=== PATIENT | male | born 1985 | race Caucasian/White ===

== ENCOUNTER 2020-03-23 13:42 | Emergency (ER) | payer MEDICAID ==
[2020-03-23] MEDS ORDERED: Lactated Ringers 1,000 ML IV ONE (15:13)
--- NOTE | 2020-03-23 15:26 | EDM.PDOC ---
ED HPI GENERAL MEDICAL PROBLEM - General Chief Complaint: Genitourinary Problem Stated Complaint: BLOOD IN URINE Time Seen by Provider: 03/23/20 15:10 Source of Information: Reports: Patient History Limitations: Reports: Other (limited old records) - History of Present Illness INITIAL COMMENTS - FREE TEXT/NARRATIVE: 34 yo male on warfarin and no recent INR presents with hematuria for the past few weeks. Today he had mild bilateral pelvic tenderness so came to the ER. No fever. No bleeding or bruising in other areas. Pain is mild. Had called his primary(in [place]) and he told him that it was not emergent to be seen unless he got pain, since he has pain today he came here. Is on warfarin for clots that developed after an umbilical hernia repair. He is currently living with his parents here since he and his are out of work and lost their residence. Onset: Gradual Duration: Week(s): Location: Reports: Pelvis (urine, gross hematuria) Quality: Reports: Dull Severity: Mild Improves with: Reports: None Worsens with: Reports: Other (uncertain) Context: Reports: Other (see HPI) Associated Symptoms: Reports: No Other Symptoms Treatments MINE SHIFTER: Reports: Other (see below) (none) Abdomen Pain Score (Numeric/FACES): 5 - Related Data Allergies Allergy/AdvReac Type Severity Reaction Status Date / Time No Known Allergies Allergy Verified 03/23/20 14:51 Home Meds: Home Meds Aspirin [Halfprin] 81 mg PO DAILY 03/23/20 [History] Celecoxib 200 mg PO DAILY 03/23/20 [History] Gabapentin [Gralise] 600 mg PO DAILY 03/23/20 [History] Hydrocodone/Acetaminophen [Lorcet 5-325 mg Tablet] 1 each PO BEDTIME 03/23/20 [ History] Sertraline [Zoloft] 100 mg PO DAILY 03/23/20 [History] Topiramate 50 mg PO DAILY 03/23/20 [History] Warfarin [Coumadin] 5 mg PO ASDIRECTED 03/23/20 [History] busPIRone [Buspar] 15 mg PO DAILY 03/23/20 [History] methocarbamoL [Methocarbamol] 500 mg PO DAILY 03/23/20 [History] Past Medical History Cardiovascular History: Reports: Other (See Below) Other Cardiovascular History: DVT Respiratory History: Reports: PE Neurological History: Reports: Brain Injury - Past Surgical History GI Surgical History: Reports: Appendectomy, Hernia, Abdominal, Hernia Repair/ Other Musculoskeletal Surgical History: Reports: Other (See Below) Other Musculoskeletal Surgeries/Procedures:: knee reconstruction and scope also shoulder surgery Social & Family History - Tobacco Use Smoking Status *Q: Never Smoker - Caffeine Use Caffeine Use: Reports: Tea - Recreational Drug Use Recreational Drug Use: No ED ROS GENERAL - Review of Systems Review Of Systems: See Below Constitutional: Reports: No Symptoms HEENT: Reports: No Symptoms Respiratory: Reports: No Symptoms Cardiovascular: Reports: No Symptoms Endocrine: Reports: No Symptoms GI/Abdominal: Reports: No Symptoms : Reports: Hematuria, Other (mild, bilateral pelvis pain new onset today. ). Denies: Dysuria Musculoskeletal: Reports: No Symptoms Skin: Reports: No Symptoms Neurological: Reports: No Symptoms Psychiatric: Reports: No Symptoms Hematologic/Lymphatic: Denies: Anemia, Easy Bleeding, Easy Bruising ED EXAM, RENAL/ - Physical Exam Exam: See Below Exam Limited By: No Limitations General Appearance: Alert, WD/WN, No Apparent Distress, Obese Eye Exam: Bilateral Eye: Normal Inspection Ears: Normal External Exam, Normal Canal, Hearing Grossly Normal, Normal TMs Nose: Normal Inspection, No Blood Throat/Mouth: Normal Inspection, Normal Lips, Normal Oropharynx, Normal Voice, No Airway Compromise Head: Atraumatic, Normocephalic Neck: Normal Inspection Respiratory/Chest: No Respiratory Distress, Lungs Clear, Normal Breath Sounds, No Accessory Muscle Use Cardiovascular: Regular Rate, Rhythm, No Edema. No: Tachycardia GI/Abdominal: No: Distended Back Exam: Normal Inspection. No: CVA Tenderness (R), CVA Tenderness (L) Extremities: Normal Inspection, Normal Range of Motion, Non-Tender, No Pedal Edema Neurological: Alert, Oriented, CN II-XII Intact, Normal Cognition, No Motor/ Sensory Deficits Psychiatric: Normal Affect, Normal Mood Skin Exam: Warm, Dry, Intact, Normal Color, No Rash Course - Vital Signs Text/Narrative:: Bladder scan 35 ml post void Last Recorded V/S: Last Vital Signs Temp 37.1 C 03/23/20 14:53 Pulse 87 03/23/20 15:52 Resp 16 03/23/20 15:52 BP 139/87 03/23/20 15:52 Pulse Ox 96 03/23/20 15:52 - Orders/Labs/Meds Orders: Active Orders 24 hr Category Date Time Status Bladder Scan [RC] ASDIRECTED Care 03/23/20 15:25 Active Renal Comp [US] Stat Exams 03/23/20 15:29 Ordered Labs: Laboratory Tests 03/23/20 03/23/20 Range/Units 15:03 15:44 PT 50.9 H (9.5-12.0) sec INR 5.17 H* (0.80-1.20) Urine Color Yellow (YELLOW) Urine Appearance Cloudy A (CLEAR) Urine pH 5.5 (5.0-8.0) Ur Specific [place] >= 1.030 (1.008-1.030) Urine Protein 30 H (NEGATIVE) mg/dL Urine Glucose (UA) Negative (NEGATIVE) mg/dL Urine Ketones Negative (NEGATIVE) mg/dL Urine Occult Blood Large H (NEGATIVE) Urine Nitrite Negative (NEGATIVE) Urine Bilirubin Small H (NEGATIVE) Urine Urobilinogen 0.2 (0.2-1.0) EU/dL Ur Leukocyte Esterase Negative (NEGATIVE) Urine RBC 50-75 H (0-5) Urine WBC 0-5 (0-5) Ur Epithelial Cells Few Amorphous Sediment Many Urine Bacteria Few Urine Mucus Not seen Urine Other Not Reportable Meds: Medications Discontinued Medications Generic Name Dose Route Start Last Admin Trade Name Freq PRN Reason Stop Dose Admin Lactated Ringer's 1,000 mls @ 1,000 mls/hr 03/23/20 15:13 03/23/20 15:48 Ringers, Lactated IV 03/23/20 16:12 1,000 mls/hr BOLUS ONE Administration - Radiology Interpretation Free Text/Narrative:: Bilat. Renal US-negative for any renal pathology Departure - Departure Time of Disposition: 16:18 Disposition: Home, Self-Care 01 Clinical Impression: Supratherapeutic INR, Gross hematuria - Discharge Information *PRESCRIPTION DRUG MONITORING PROGRAM REVIEWED*: No *COPY OF PRESCRIPTION DRUG MONITORING REPORT IN PATIENT ANI: No Instructions: Hematuria, Adult Referrals: PCP,None [Primary Care Provider] - Forms: ED Department Discharge Additional Instructions: Hold your warfarin today and tomorrow. Share today's INR of 5.17 with your doctor regarding changes in your warfarin dosing. F/U with your doctor for further work up, you may need urology referral for cystoscopy. Sepsis Event Note - Evaluation Sepsis Screening Result: No Definite Risk - Focused Exam Vital Signs: Vital Signs Temp Pulse Resp BP Pulse Ox 03/23/20 15:52 87 16 139/87 96 03/23/20 14:53 37.1 C 114 H 17 131/91 H 96 03/23/20 14:36 37.1 C 114 H 17 131/91 H 96 Date Exam was Performed: 03/23/20 Time Exam was Performed: 16:18 - My Orders Last 24 Hours: My Active Orders 03/23/20 15:25 Bladder Scan [RC] ASDIRECTED 03/23/20 15:29 Renal Comp [US] Stat - Assessment/Plan Last 24 Hours: My Active Orders 03/23/20 15:25 Bladder Scan [RC] ASDIRECTED 03/23/20 15:29 Renal Comp [US] Stat
--- NOTE | 2020-03-23 16:51 | CRLUS ---
INDICATION: Painless gross hematuria. 34-year-old male. TECHNIQUE: Ultrasound renal bilateral. Greene-scale and color Doppler sonographic images were acquired of the kidneys and urinary bladder. COMPARISON: None FINDINGS: Right kidney: Length 11.1 cm. Normal echotexture and cortex noted. No masses, stones, or hydronephrosis seen. Left kidney: Length 12.8 cm. Normal echotexture and cortex noted. No masses, stones, or hydronephrosis seen. Bladder: Limited distention of bladder, limiting characterization. Prevoid bladder volume 17.2 mL. Ureteral jets are not visualized. IMPRESSION: 1. Technically limited study due to patient body habitus and limited bladder distention. 2. Grossly normal sonographic appearance of both kidneys. No definite renal calculi, renal mass, or hydronephrosis. 3. Based on limited ultrasound study, consider CT urogram. Dictated by Yosef Aguayo MD @ 03/23/2020 4:51:17 PM Dictated by: Yosef Aguayo MD @ 03/23/2020 16:51:24 (Electronically Signed)
== END 2020-03-23 16:40 | disposition home or self-care (01) ==
LOC: JP.ED 13:42
DX: R79.1 Abnormal coagulation profile (principal); R31.0 Gross hematuria; Z79.82 Long term (current) use of aspirin; Z79.899 Other long term (current) drug therapy; Z86.711 Personal history of pulmonary embolism; Z79.01 Long term (current) use of anticoagulants; Z86.718 Personal history of other venous thrombosis and embolism
CPT/HCPCS: 36415; 51798; 76770; 81001; 85610; 99283; 99284-25; J7120

== ENCOUNTER 2020-03-26 14:42 | Emergency (ER) | payer MEDICAID ==
[2020-03-26] MEDS ORDERED: Ondansetron 4 MG/2 ML SDV IVPUSH ONE ×2 (15:22→17:15)
[2020-03-26] MEDS ORDERED: HYDROmorphone 1 MG/ML Syringe IVPUSH ONE ×2 (15:23→18:32)
--- NOTE | 2020-03-26 15:25 | EDM.PDOC ---
<Caleb Gray - Last Filed: 03/26/20 22:29> ED HPI GENERAL MEDICAL PROBLEM - General Chief Complaint: Gastrointestinal Problem Stated Complaint: BACK PAIN,VOMITING Time Seen by Provider: 03/26/20 15:24 - Related Data Allergies Allergy/AdvReac Type Severity Reaction Status Date / Time No Known Allergies Allergy Verified 03/26/20 14:57 Home Meds: Home Meds Aspirin [Halfprin] 81 mg PO DAILY 03/23/20 [History] Celecoxib 200 mg PO DAILY 03/23/20 [History] Gabapentin [Gralise] 600 mg PO DAILY 03/23/20 [History] Hydrocodone/Acetaminophen [Lorcet 5-325 mg Tablet] 1 each PO BEDTIME 03/23/20 [ History] Sertraline [Zoloft] 100 mg PO DAILY 03/23/20 [History] Topiramate 50 mg PO DAILY 03/23/20 [History] Warfarin [Coumadin] 5 mg PO ASDIRECTED 03/23/20 [History] busPIRone [Buspar] 15 mg PO DAILY 03/23/20 [History] methocarbamoL [Methocarbamol] 500 mg PO DAILY 03/23/20 [History] Course - Vital Signs Last Recorded V/S: Last Vital Signs Temp 36.9 C 03/26/20 15:05 Pulse 69 03/26/20 18:59 Resp 16 03/26/20 17:04 BP 120/87 03/26/20 18:59 Pulse Ox 97 03/26/20 17:04 - Orders/Labs/Meds Labs: Laboratory Tests 03/26/20 03/26/20 03/26/20 Range/Units 15:18 15:22 15:30 WBC 11.4 H (4.5-11.0) K/uL RBC 5.54 (4.30-5.90) M/uL Hgb 15.5 H (12.0-15.0) g/dL Hct 45.1 (40.0-54.0) % MCV 81 (80-98) fL MCH 28 (27-31) pg MCHC 34 (32-36) % Plt Count 250 (150-400) K/uL Neut % (Auto) 75 H (36-66) % Lymph % (Auto) 14 L (24-44) % [place] % (Auto) 10 H (2-6) % Eos % (Auto) 0 L (2-4) % Baso % (Auto) 0 (0-1) % PT 18.7 H (9.5-12.0) sec INR 1.79 H D (0.80-1.20) Sodium (140-148) mmol/L Potassium (3.6-5.2) mmol/L Chloride (100-108) mmol/L Carbon Dioxide (21-32) mmol/L Anion Gap (5.0-14.0) mmol/L BUN (7-18) mg/dL Creatinine (0.8-1.3) mg/dL Est Cr Clr Drug Dosing mL/min Estimated GFR (MDRD) (>60) Glucose (74-106) mg/dL Calcium (8.5-10.1) mg/dL Total Bilirubin (0.2-1.0) mg/dL AST (15-37) U/L ALT (12-78) U/L Alkaline Phosphatase (46-116) U/L Total Protein (6.4-8.2) g/dL Albumin (3.4-5.0) g/dL Globulin (2.3-3.5) g/dL Albumin/Globulin Ratio (1.2-2.2) Urine Color [place] A (YELLOW) Urine Appearance Clear (CLEAR) Urine pH 6.0 (5.0-8.0) Ur Specific [place] >= 1.030 (1.008-1.030) Urine Protein 100 H (NEGATIVE) mg/dL Urine Glucose (UA) Negative (NEGATIVE) mg/dL Urine Ketones Negative (NEGATIVE) mg/dL Urine Occult Blood Large H (NEGATIVE) Urine Nitrite Negative (NEGATIVE) Urine Bilirubin Small H (NEGATIVE) Urine Urobilinogen 1.0 (0.2-1.0) EU/dL Ur Leukocyte Esterase Negative (NEGATIVE) Urine RBC 5-10 H (0-5) Urine WBC 0-5 (0-5) Ur Epithelial Cells Not seen Amorphous Sediment Many Urine Bacteria Not seen Urine Mucus Not seen 03/26/20 Range/Units 15:30 WBC (4.5-11.0) K/uL RBC (4.30-5.90) M/uL Hgb (12.0-15.0) g/dL Hct (40.0-54.0) % MCV (80-98) fL MCH (27-31) pg MCHC (32-36) % Plt Count (150-400) K/uL Neut % (Auto) (36-66) % Lymph % (Auto) (24-44) % [place] % (Auto) (2-6) % Eos % (Auto) (2-4) % Baso % (Auto) (0-1) % PT (9.5-12.0) sec INR (0.80-1.20) Sodium 138 L (140-148) mmol/L Potassium 3.5 L (3.6-5.2) mmol/L Chloride 102 (100-108) mmol/L Carbon Dioxide 23 (21-32) mmol/L Anion Gap 16.5 H (5.0-14.0) mmol/L BUN 17 (7-18) mg/dL Creatinine 1.7 H (0.8-1.3) mg/dL Est Cr Clr Drug Dosing 83.72 mL/min Estimated GFR (MDRD) 46 L (>60) Glucose 111 H (74-106) mg/dL Calcium 9.2 (8.5-10.1) mg/dL Total Bilirubin 0.7 (0.2-1.0) mg/dL AST 69 H (15-37) U/L ALT 55 (12-78) U/L Alkaline Phosphatase 73 (46-116) U/L Total Protein 7.3 (6.4-8.2) g/dL Albumin 3.6 (3.4-5.0) g/dL Globulin 3.7 H (2.3-3.5) g/dL Albumin/Globulin Ratio 1.0 L (1.2-2.2) Urine Color (YELLOW) Urine Appearance (CLEAR) Urine pH (5.0-8.0) Ur Specific [place] (1.008-1.030) Urine Protein (NEGATIVE) mg/dL Urine Glucose (UA) (NEGATIVE) mg/dL Urine Ketones (NEGATIVE) mg/dL Urine Occult Blood (NEGATIVE) Urine Nitrite (NEGATIVE) Urine Bilirubin (NEGATIVE) Urine Urobilinogen (0.2-1.0) EU/dL Ur Leukocyte Esterase (NEGATIVE) Urine RBC (0-5) Urine WBC (0-5) Ur Epithelial Cells Amorphous Sediment Urine Bacteria Urine Mucus Meds: Medications Discontinued Medications Generic Name Dose Route Start Last Admin Trade Name Freq PRN Reason Stop Dose Admin Hydromorphone HCl 1 mg 03/26/20 15:23 03/26/20 15:37 Dilaudid IVPUSH 03/26/20 15:24 1 mg ONETIME ONE Administration Hydromorphone HCl 1 mg 03/26/20 18:32 03/26/20 18:40 Dilaudid IVPUSH 03/26/20 18:33 1 mg ONETIME ONE Administration Sodium Chloride 1,000 mls @ 999 mls/hr 03/26/20 15:30 03/26/20 15:39 Normal Saline IV 999 mls/hr ASDIRECTED FAVIAN Administration Sodium Chloride 1,000 mls @ 999 mls/hr 03/26/20 16:30 03/26/20 17:16 Normal Saline IV 999 mls/hr ASDIRECTED FAVIAN Administration Ketorolac Tromethamine Confirm 03/26/20 17:07 Toradol Administered 03/26/20 17:08 Dose 30 mg .ROUTE .STK-MED ONE Ketorolac Tromethamine 30 mg 03/26/20 17:14 03/26/20 17:17 Toradol IVPUSH 03/26/20 17:15 30 mg ONETIME ONE Administration Ondansetron HCl 4 mg 03/26/20 15:22 03/26/20 15:36 Zofran IVPUSH 03/26/20 15:23 4 mg ONETIME ONE Administration Ondansetron HCl Confirm 03/26/20 17:07 Zofran Administered 03/26/20 17:08 Dose 4 mg .ROUTE .STK-MED ONE Ondansetron HCl 4 mg 03/26/20 17:15 03/26/20 17:18 Zofran IVPUSH 03/26/20 17:16 4 mg ONETIME ONE Administration Tamsulosin HCl 0.4 mg 03/26/20 18:31 03/26/20 18:40 Flomax PO 03/26/20 18:32 0.4 mg ONETIME ONE Administration Departure - Departure Time of Disposition: 19:27 Disposition: Home, Self-Care 01 Clinical Impression: Renal colic on left side, Pancreatic mass Nausea and vomiting Qualifiers: Vomiting type: unspecified Vomiting Intractability: non-intractable Qualified Code(s): R11.2 - Nausea with vomiting, unspecified - Discharge Information Instructions: Kidney Stones, [id number] Referrals: PCP,None [Primary Care Provider] - Forms: ED Department Discharge Care Plan Goals: Use ketorolac every 6-8 hours while having pain, and add hydrocodone for extra pain control. Take 1 Flomax in the evening for the next several days if needed. Recheck in 2 to 3 days if still having symptoms to recheck kidney function. Return sooner if worsening despite medication. Normal hydration as tolerated. Resume your regular medications. rtc for the the dedicated study on the panctreas, follow up appt with Dr Garcai Sepsis Event Note - Focused Exam Date Exam was Performed: 03/26/20 Time Exam was Performed: 22:29 <Ele Canada - Last Filed: 03/27/20 07:32> ED HPI GENERAL MEDICAL PROBLEM - General Source of Information: Reports: Patient, Family History Limitations: Reports: No Limitations - History of Present Illness INITIAL COMMENTS - FREE TEXT/NARRATIVE: pt was seen on Saturday and had hematuria. He did not have pain at that time. He did have a high INR and it was felt the hematuria was from that. Onset: Other (pain started last nite. ) Duration: Hour(s): Location: Reports: Abdomen Associated Symptoms: Reports: Nausea/Vomiting, Weakness Past Medical History Cardiovascular History: Reports: Other (See Below) Other Cardiovascular History: DVT Respiratory History: Reports: PE Neurological History: Reports: Brain Injury - Past Surgical History GI Surgical History: Reports: Appendectomy, Hernia, Abdominal, Hernia Repair/ Other Musculoskeletal Surgical History: Reports: Other (See Below) Other Musculoskeletal Surgeries/Procedures:: knee reconstruction and scope also shoulder surgery Social & Family History - Tobacco Use Smoking Status *Q: Never Smoker - Caffeine Use Caffeine Use: Reports: Tea ED ROS GENERAL - Review of Systems Review Of Systems: See Below Constitutional: Reports: Weakness, Decreased Appetite, Other (pt has been doing alot of vomiting. ) HEENT: Reports: No Symptoms Respiratory: Reports: No Symptoms Cardiovascular: Reports: No Symptoms Endocrine: Reports: No Symptoms GI/Abdominal: Reports: Abdominal Pain, Other (pt has severe left flank pain) : Reports: Flank Pain, Hematuria Musculoskeletal: Reports: No Symptoms Skin: Reports: No Symptoms ED EXAM, GI/ABD - Physical Exam Exam: See Below Text/Narrative:: pt was seen in the ER on [place] and he had hematuria. He now is vomiting alot and he is having severe flank pain Exam Limited By: No Limitations General Appearance: Alert, Anxious, Severe Distress Ears: Normal TMs Nose: Normal Inspection Throat/Mouth: Normal Inspection Head: Atraumatic Neck: Normal Inspection Respiratory/Chest: No Respiratory Distress Cardiovascular: Regular Rate, Rhythm GI/Abdominal Exam: Tender, Other (pt has pain in the left flank) (Male) Exam: Deferred Rectal (Males) Exam: Deferred Back Exam: Normal Inspection, CVA Tenderness (L) Extremities: Normal Inspection Neurological: Alert, Oriented, Normal Cognition Psychiatric: Anxious Course - Orders/Labs/Meds Labs: Laboratory Tests 03/26/20 03/26/20 03/26/20 Range/Units 15:18 15:22 15:30 WBC 11.4 H (4.5-11.0) K/uL RBC 5.54 (4.30-5.90) M/uL Hgb 15.5 H (12.0-15.0) g/dL Hct 45.1 (40.0-54.0) % MCV 81 (80-98) fL MCH 28 (27-31) pg MCHC 34 (32-36) % Plt Count 250 (150-400) K/uL Neut % (Auto) 75 H (36-66) % Lymph % (Auto) 14 L (24-44) % [place] % (Auto) 10 H (2-6) % Eos % (Auto) 0 L (2-4) % Baso % (Auto) 0 (0-1) % PT 18.7 H (9.5-12.0) sec INR 1.79 H D (0.80-1.20) Sodium (140-148) mmol/L Potassium (3.6-5.2) mmol/L Chloride (100-108) mmol/L Carbon Dioxide (21-32) mmol/L Anion Gap (5.0-14.0) mmol/L BUN (7-18) mg/dL Creatinine (0.8-1.3) mg/dL Est Cr Clr Drug Dosing mL/min Estimated GFR (MDRD) (>60) Glucose (74-106) mg/dL Calcium (8.5-10.1) mg/dL Total Bilirubin (0.2-1.0) mg/dL AST (15-37) U/L ALT (12-78) U/L Alkaline Phosphatase (46-116) U/L Total Protein (6.4-8.2) g/dL Albumin (3.4-5.0) g/dL Globulin (2.3-3.5) g/dL Albumin/Globulin Ratio (1.2-2.2) Urine Color [place] A (YELLOW) Urine Appearance Clear (CLEAR) Urine pH 6.0 (5.0-8.0) Ur Specific [place] >= 1.030 (1.008-1.030) Urine Protein 100 H (NEGATIVE) mg/dL Urine Glucose (UA) Negative (NEGATIVE) mg/dL Urine Ketones Negative (NEGATIVE) mg/dL Urine Occult Blood Large H (NEGATIVE) Urine Nitrite Negative (NEGATIVE) Urine Bilirubin Small H (NEGATIVE) Urine Urobilinogen 1.0 (0.2-1.0) EU/dL Ur Leukocyte Esterase Negative (NEGATIVE) Urine RBC 5-10 H (0-5) Urine WBC 0-5 (0-5) Ur Epithelial Cells Not seen Amorphous Sediment Many Urine Bacteria Not seen Urine Mucus Not seen 03/26/20 Range/Units 15:30 WBC (4.5-11.0) K/uL RBC (4.30-5.90) M/uL Hgb (12.0-15.0) g/dL Hct (40.0-54.0) % MCV (80-98) fL MCH (27-31) pg MCHC (32-36) % Plt Count (150-400) K/uL Neut % (Auto) (36-66) % Lymph % (Auto) (24-44) % [place] % (Auto) (2-6) % Eos % (Auto) (2-4) % Baso % (Auto) (0-1) % PT (9.5-12.0) sec INR (0.80-1.20) Sodium 138 L (140-148) mmol/L Potassium 3.5 L (3.6-5.2) mmol/L Chloride 102 (100-108) mmol/L Carbon Dioxide 23 (21-32) mmol/L Anion Gap 16.5 H (5.0-14.0) mmol/L BUN 17 (7-18) mg/dL Creatinine 1.7 H (0.8-1.3) mg/dL Est Cr Clr Drug Dosing 83.72 mL/min Estimated GFR (MDRD) 46 L (>60) Glucose 111 H (74-106) mg/dL Calcium 9.2 (8.5-10.1) mg/dL Total Bilirubin 0.7 (0.2-1.0) mg/dL AST 69 H (15-37) U/L ALT 55 (12-78) U/L Alkaline Phosphatase 73 (46-116) U/L Total Protein 7.3 (6.4-8.2) g/dL Albumin 3.6 (3.4-5.0) g/dL Globulin 3.7 H (2.3-3.5) g/dL Albumin/Globulin Ratio 1.0 L (1.2-2.2) Urine Color (YELLOW) Urine Appearance (CLEAR) Urine pH (5.0-8.0) Ur Specific [place] (1.008-1.030) Urine Protein (NEGATIVE) mg/dL Urine Glucose (UA) (NEGATIVE) mg/dL Urine Ketones (NEGATIVE) mg/dL Urine Occult Blood (NEGATIVE) Urine Nitrite (NEGATIVE) Urine Bilirubin (NEGATIVE) Urine Urobilinogen (0.2-1.0) EU/dL Ur Leukocyte Esterase (NEGATIVE) Urine RBC (0-5) Urine WBC (0-5) Ur Epithelial Cells Amorphous Sediment Urine Bacteria Urine Mucus - Re-Assessments/Exams Free Text/Narrative Re-Assessment/Exam: 03/26/20 18:36 pt had a cat scan which shows a 3 mm stone mid ureter. He has a elevated cretnine at 1.7. He appears very dehydrated. He is on his third liter of fluid. He was give flomax and he was given torodol and 2 mg of dil;audid. He has a mass in the tail of his pancreas. This will be evaluated with a MRI He will see Dr Garcia in follow up. 03/27/20 07:30 pt is to resume his coumadin as usual. Sepsis Event Note - Evaluation Sepsis Screening Result: No Definite Risk - Focused Exam Date Exam was Performed: 03/27/20 Time Exam was Performed: 07:30
[2020-03-26] MEDS ORDERED: Sodium Chloride 0.9% 1,000 ML IV SCH ×2 (15:30→16:30)
--- NOTE | 2020-03-26 16:46 | CRLCT ---
INDICATION: Severe left flank pain. TECHNIQUE: CT abdomen and pelvis without contrast. COMPARISON: Renal ultrasound 03/23/2020. FINDINGS: Lower chest: Calcified granuloma noted in the left lung base. Liver: Diffuse hypoattenuation of the hepatic parenchyma consistent with hepatic steatosis. There is a 1.7 cm lesion in the right lobe of the liver with partial rim calcification (series 2, image 67). Gallbladder and bile ducts: No cholelithiasis or biliary ductal dilatation. Spleen: Unremarkable. Pancreas: There is a 2.8 x 2.0 cm mass in the pancreatic tail (series 2, image 70) the pancreatic duct is not dilated. Adrenal glands: Unremarkable. Kidneys: There is a mild left hydroureteronephrosis to the level of a 3 mm obstructing stone in the mid ureter. Mild stranding surrounds the proximal ureter. There are 2 punctate nonobstructing left renal stones. No renal stones or hydronephrosis on the right. There is a 1.7 cm exophytic cyst along the inferior pole of the left kidney. GI tract: Normal caliber small and large bowel without evidence of obstruction or inflammation. Colonic diverticulosis but no evidence of acute diverticulitis. Vascular structures: A stent is present within the right iliac vein. No abdominal aortic aneurysm. Lymph nodes: Unremarkable. Miscellaneous: No free air or ascites. Pelvic Organs: Unremarkable. Bones: No acute abnormality. No suspicious bone lesion. IMPRESSION: 1. There is a 3 mm obstructing stone in the left mid ureter with resulting mild hydroureteronephrosis. 2. There is a 2.8 cm mass in the pancreatic tail. Recommend further evaluation with non-emergent dedicated contrast enhanced pancreatic CT or MRI. 3. A 1.7 cm lesion in the right lobe of the liver with partial rim calcification is indeterminate. This can be further evaluated on the exam recommended above. Please note that all CT scans at this facility use dose modulation, iterative reconstruction, and/or weight-based dosing when appropriate to reduce radiation dose to as low as reasonably achievable. Dictated by Maria Dolores Darden MD @ Mar 26 2020 4:31PM Signed by Dr. Maria Dolores Darden @ Mar 26 2020 4:44PM
[2020-03-26] MEDS ORDERED: Ondansetron 4 MG/2 ML SDV ONE (17:07)
[2020-03-26] MEDS ORDERED: Ketorolac 30 MG/ML SDV ONE (17:07)
[2020-03-26] MEDS ORDERED: Ketorolac 30 MG/ML SDV IVPUSH ONE (17:14)
[2020-03-26] MEDS ORDERED: Tamsulosin 0.4 MG Cap.ER PO ONE (18:31)
== END 2020-03-26 19:28 | disposition home or self-care (01) ==
LOC: JP.ED 14:42
DX: K86.89 Other specified diseases of pancreas (principal); N23 Unspecified renal colic; Z79.82 Long term (current) use of aspirin; Z79.899 Other long term (current) drug therapy; Z79.01 Long term (current) use of anticoagulants; Z86.711 Personal history of pulmonary embolism; Z86.718 Personal history of other venous thrombosis and embolism; Z90.49 Acquired absence of other specified parts of digestive tract; Z98.890 Other specified postprocedural states
CPT/HCPCS: 36415; 74176; 80053; 81001; 85025; 85610; 96361; 96374; 96375; 96376; 99284; A9270; J1170; J1885; J2405; J7030

== ENCOUNTER 2020-12-09 14:17 | Emergency (ER) | payer MEDICAID, OTHER ==
[2020-12-09] MEDS ORDERED: Sodium Chloride 0.9% 10 ML Syringe FLUSH PRN (14:57)
[2020-12-09] MEDS ORDERED: Ketorolac 30 MG/ML SDV IVPUSH ONE (14:58)
--- NOTE | 2020-12-09 15:03 | EDM.PDOC ---
ED HPI GENERAL MEDICAL PROBLEM - General Chief Complaint: Abdominal Pain Stated Complaint: POSS. KIDNEY STONES Time Seen by Provider: 12/09/20 14:45 Source of Information: Reports: Patient, Old Records, RN History Limitations: Reports: No Limitations - History of Present Illness INITIAL COMMENTS - FREE TEXT/NARRATIVE: 35 yo male here with RLQ abdominal pain that has been progressive over the past couple of days. No fever. Pain is worse with movement. Had some gross hematuria recently. Has a pHx of appendicitis w/appendectomy. Pain increased with hitting bumps while driving here. Recalls being told that he had diverticulosis when he had his appy. Onset: Sudden Onset Date: 12/07/20 Duration: Day(s):, Getting Worse Location: Reports: Abdomen Quality: Reports: Ache Severity: Moderate Improves with: Reports: Rest Worsens with: Reports: Movement Context: Reports: Other (See HPI) Associated Symptoms: Reports: Other (gross hematuria). Denies: Fever/Chills Treatments GERIATRIC PERSONAL CARE AIDE: Reports: Other (see below) (none) Right Lower Pelvic Pain Score (Numeric/FACES): 7 - Related Data Allergies Allergy/AdvReac Type Severity Reaction Status Date / Time No Known Allergies Allergy Verified 12/09/20 14:49 Home Meds: Home Meds Gabapentin [Gralise] 600 mg PO DAILY 03/23/20 [History] Sertraline [Zoloft] 100 mg PO DAILY 03/23/20 [History] methocarbamoL [Methocarbamol] 500 mg PO DAILY 03/23/20 [History] Diclofenac Sodium 1 applic TOP DAILY 12/09/20 [History] Ondansetron [Zofran ODT] 4 mg PO Q6H PRN 12/09/20 [History] Propranolol [Inderal] 40 mg PO BEDTIME 12/09/20 [History] Rizatriptan [Maxalt SAMPLE COORDINATOR] 10 mg PO ASDIRECTED PRN 12/09/20 [History] hydrOXYzine HCL [Atarax] 25 mg PO Q6H 12/09/20 [History] Past Medical History Cardiovascular History: Reports: Other (See Below) Other Cardiovascular History: DVT Respiratory History: Reports: PE Neurological History: Reports: Brain Injury - Past Surgical History GI Surgical History: Reports: Appendectomy, Hernia, Abdominal, Hernia Repair/Other Musculoskeletal Surgical History: Reports: Other (See Below) Other Musculoskeletal Surgeries/Procedures:: knee reconstruction and scope also shoulder surgery Social & Family History - Caffeine Use Caffeine Use: Reports: Tea ED ROS GENERAL - Review of Systems Review Of Systems: See Below Constitutional: Reports: No Symptoms HEENT: Reports: No Symptoms Respiratory: Reports: No Symptoms Cardiovascular: Reports: No Symptoms Endocrine: Reports: No Symptoms GI/Abdominal: Reports: Abdominal Pain : Reports: Hematuria Skin: Reports: No Symptoms Neurological: Reports: No Symptoms ED EXAM, GI/ABD - Physical Exam Exam: See Below Exam Limited By: No Limitations General Appearance: Alert, WD/WN, No Apparent Distress, Obese Eyes: Bilateral: Normal Appearance Ears: Normal External Exam, Normal Canal, Hearing Grossly Normal Nose: Normal Inspection, No Blood Throat/Mouth: Normal Inspection, Normal Lips, Normal Oropharynx, Normal Voice, No Airway Compromise Head: Atraumatic, Normocephalic Neck: Normal Inspection Respiratory/Chest: No Respiratory Distress, Lungs Clear, Normal Breath Sounds, No Accessory Muscle Use Cardiovascular: Regular Rate, Rhythm, No Edema GI/Abdominal Exam: Normal Bowel Sounds, Soft, No Distention, Guarding, Rebound, Tender (RLQ of abdomen). No: Non-Tender, Distended, Rigid Back Exam: Normal Inspection. No: CVA Tenderness (R), CVA Tenderness (L) Extremities: Normal Inspection, Normal Range of Motion, Non-Tender, No Pedal Edema Neurological: Alert, Oriented, CN II-XII Intact, Normal Cognition, No Motor/Sensory Deficits Psychiatric: Normal Affect, Normal Mood Skin Exam: Warm, Dry, Intact, Normal Color, No Rash Course - Vital Signs Last Recorded V/S: Last Vital Signs Temp 36.6 C 12/09/20 14:49 Pulse 75 12/09/20 16:40 Resp 16 12/09/20 16:40 BP 141/93 H 12/09/20 16:40 Pulse Ox 97 12/09/20 16:40 - Orders/Labs/Meds Orders: Active Orders 24 hr Category Date Time Status Sodium Chloride 0.9% [Saline Flush] Med 12/09/20 14:57 Active 10 ml FLUSH ASDIRECTED PRN Saline Lock Insert [OM.PC] Routine Oth 12/09/20 14:57 Ordered Medication Orders Sodium Chloride (Saline Flush) 10 ml FLUSH ASDIRECTED PRN PRN Reason: Keep Vein Open Last Admin: 12/09/20 15:39 Dose: 10 ml Documented by: PREILOR Labs: Laboratory Tests 12/09/20 12/09/20 12/09/20 Range/Units 15:26 15:26 15:41 WBC 6.7 (4.5-11.0) K/uL RBC 5.82 (4.30-5.90) M/uL Hgb 15.8 H (12.0-15.0) g/dL Hct 47.6 (40.0-54.0) % MCV 82 (80-98) fL MCH 27 (27-31) pg MCHC 33 (32-36) % Plt Count 231 (150-400) K/uL C-Reactive Protein 0.36 H (0.0-0.3) mg/dL Urine Color Yellow (YELLOW) Urine Appearance Turbid A (CLEAR) Urine pH 5.5 (5.0-8.0) Ur Specific [place] 1.025 (1.008-1.030) Urine Protein 100 H (NEGATIVE) mg/dL Urine Glucose (UA) Negative (NEGATIVE) mg/dL Urine Ketones Negative (NEGATIVE) mg/dL Urine Occult Blood Large H (NEGATIVE) Urine Nitrite Negative (NEGATIVE) Urine Bilirubin Small H (NEGATIVE) Urine Urobilinogen 0.2 (0.2-1.0) EU/dL Ur Leukocyte Esterase Negative (NEGATIVE) Urine RBC >100 H (0-5) Urine WBC 5-10 H (0-5) Ur Epithelial Cells Few Amorphous Sediment Not seen Urine Bacteria Many Urine Mucus Few Urine Other Meds: Medications Generic Name Dose Route Start Last Admin Trade Name Freq PRN Reason Stop Dose Admin Sodium Chloride 10 ml 12/09/20 14:57 12/09/20 15:39 Saline Flush FLUSH 10 ml ASDIRECTED PRN Administration Keep Vein Open Discontinued Medications Generic Name Dose Route Start Last Admin Trade Name Freq PRN Reason Stop Dose Admin Lactated Ringer's 1,000 mls @ 1,000 mls/hr 12/09/20 16:19 12/09/20 16:39 Ringers, Lactated IV 12/09/20 17:18 1,000 mls/hr BOLUS ONE Administration Ketorolac Tromethamine 30 mg 12/09/20 14:58 12/09/20 15:38 Toradol IVPUSH 12/09/20 14:59 30 mg ONETIME ONE Administration - Radiology Interpretation Free Text/Narrative:: abd/pelvis CT without contrast- IMPRESSION: 1. A small 2 mm stone is present in the right base of the urinary bladder. This may have recently passed and would explain the patient`s right lower quadrant pain and hematuria. Few tiny bilateral renal stones persist. No hydronephrosis. 2. Persistent indeterminate 2.8 cm soft tissue nodule in the pancreatic tail. 3. New 5 cm cyst is present in the wall of the gastric fundus. This is of uncertain etiology and significance. 4. GI consultation is recommended for management of the new cystic lesion in the stomach and the stable soft tissue nodule in the pancreas. Dictated by Quinn Stone MD @ 12/09/2020 5:26:[address] Results Date: 12/09/20 CT Results Time: 17:30 - Re-Assessments/Exams Free Text/Narrative Re-Assessment/Exam: 12/09/20 16:36 Pain is considerably less after Toradol 30 mg IV. Departure - Departure Time of Disposition: 17:40 Disposition: Home, Self-Care 01 Condition: Fair Clinical Impression: Renal calculus, right, Gastric cyst, Pancreatic cyst - Discharge Information *PRESCRIPTION DRUG MONITORING PROGRAM REVIEWED*: Not Applicable *COPY OF PRESCRIPTION DRUG MONITORING REPORT IN PATIENT ANI: Not Applicable Instructions: Kidney Stones, [id number] Referrals: PCP,None [Primary Care Provider] - Forms: ED Department Discharge Additional Instructions: Drink ample fluids. F/U with your provider regarding your gastric cyst. Use Percocet for pain relief as needed. Sepsis Event Note (ED) - Evaluation Sepsis Screening Result: No Definite Risk - Focused Exam Vital Signs: Vital Signs Temp Pulse Resp BP Pulse Ox 12/09/20 16:40 75 16 141/93 H 97 12/09/20 14:49 36.6 C 76 18 140/87 100 12/09/20 14:45 36.6 C 76 18 140/87 100 - My Orders Last 24 Hours: My Active Orders 12/09/20 14:57 Sodium Chloride 0.9% [Saline Flush] 10 ml FLUSH ASDIRECTED PRN Saline Lock Insert [OM.PC] Routine - Assessment/Plan Last 24 Hours: My Active Orders 12/09/20 14:57 Sodium Chloride 0.9% [Saline Flush] 10 ml FLUSH ASDIRECTED PRN Saline Lock Insert [OM.PC] Routine
[2020-12-09] MEDS ORDERED: Lactated Ringers 1,000 ML IV ONE (16:19)
--- NOTE | 2020-12-09 17:28 | CRLCT ---
INDICATION: Right lower quadrant abdomen pain and hematuria. History of renal stones. TECHNIQUE: CT abdomen and pelvis without contrast. COMPARISON: 03/26/2020. FINDINGS: Lower chest: Unremarkable. Liver: Diffuse fatty infiltration. Otherwise unremarkable. Gallbladder and bile ducts: Small amount of relatively dense sludge or small stones are present in the gallbladder. No inflammation and no biliary dilatation. Pancreas: Soft tissue mass in the pancreatic tail measuring up to 2.8 cm does not appear significantly changed. Remainder of the pancreas is unremarkable. Spleen: Normal in size. No masses. Adrenal glands: Normal in size. No nodules. Kidneys: A few tiny bilateral renal stones are nonobstructive. No hydronephrosis. GI tract: There is a new 5 cm cystic lesion in the gastric fundus wall as visualized on series 2, image 42. GI tract is otherwise normal in caliber and appearance. Appendix has been resected. Vasculature: Abdominal aorta is normal in caliber. A stent is present in the right external iliac vein. Lymph nodes: No lymphadenopathy. Abdominal wall/Omentum/Peritoneum: Unremarkable. No sign of mass or infiltration. No free air or significant free fluid. Pelvis: A small 2 mm stone is in the right base of the urinary bladder. Pelvis is otherwise unremarkable. Bones: Unremarkable for age. IMPRESSION: 1. A small 2 mm stone is present in the right base of the urinary bladder. This may have recently passed and would explain the patient`s right lower quadrant pain and hematuria. Few tiny bilateral renal stones persist. No hydronephrosis. 2. Persistent indeterminate 2.8 cm soft tissue nodule in the pancreatic tail. 3. New 5 cm cyst is present in the wall of the gastric fundus. This is of uncertain etiology and significance. 4. GI consultation is recommended for management of the new cystic lesion in the stomach and the stable soft tissue nodule in the pancreas. Dictated by Quinn Stone MD @ 12/09/2020 5:26:55 PM Please note that all CT scans at this facility use dose modulation, iterative reconstruction, and/or weight-based dosing when appropriate to reduce radiation dose to as low as reasonably achievable. Dictated by: Quinn Stone MD @ 12/09/2020 17:27:03 (Electronically Signed)
== END 2020-12-09 18:12 | disposition home or self-care (01) ==
LOC: JP.ED 14:17
DX: K86.2 Cyst of pancreas (principal); N20.0 Calculus of kidney; E66.9 Obesity, unspecified; Z68.34 Body mass index [BMI] 34.0-34.9, adult
CPT/HCPCS: 36415; 74176; 81001; 85027; 86140; 96374; 99284; J1885; J7120

== ENCOUNTER 2021-09-15 15:35 | Emergency (ER) | payer MEDICAID ==
[2021-09-15] MEDS ORDERED: Ketorolac 30 MG/ML SDV IM ONE (16:31)
--- NOTE | 2021-09-15 16:46 | EDM.PDOC ---
ED HPI GENERAL MEDICAL PROBLEM - General Chief Complaint: Genitourinary Problem Stated Complaint: POSSIBLE KIDNEY STONES Time Seen by Provider: 09/15/21 16:25 Source of Information: Reports: Patient, Old Records, RN History Limitations: Reports: No Limitations - History of Present Illness INITIAL COMMENTS - FREE TEXT/NARRATIVE: 36 yo male with a pHx of kidney stones presents with L sided abdominal pain that reminds him of his past kidney stones. He had some Zofran at home that he took so has no current nausea. His pain was mild over the past few days and he thought he had strained himself lifting. Today he saw gross hematuria so came into the ER. He has had some chills. Onset: Gradual Onset Date: 09/11/21 Duration: Day(s): (4), Getting Worse, Waxing/Waning Location: Reports: Abdomen (left side) Quality: Reports: Ache Severity: Moderate Improves with: Reports: Other (unsure) Worsens with: Reports: Other (unsure, ? 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 (see below) (zofran) Left Lower Abdomen Pain Score (Numeric/FACES): 5 - Related Data Allergies Allergy/AdvReac Type Severity Reaction Status Date / Time No Known Allergies Allergy Verified 09/15/21 16:08 Home Meds: Home Meds Gabapentin [Gralise] 600 mg PO DAILY 03/23/20 [History] Sertraline [Zoloft] 100 mg PO DAILY 03/23/20 [History] methocarbamoL [Methocarbamol] 500 mg PO DAILY 03/23/20 [History] Diclofenac Sodium 1 applic TOP DAILY PRN 12/09/20 [History] Ondansetron [Zofran ODT] 4 mg PO Q6H PRN 12/09/20 [History] Propranolol [Inderal] 40 mg PO BEDTIME 12/09/20 [History] Rizatriptan [Maxalt BONE PULLER] 10 mg PO ASDIRECTED PRN 12/09/20 [History] hydrOXYzine HCL [Atarax] 25 mg PO Q6H 12/09/20 [History] Acetaminophen/oxyCODONE [Percocet 325-5 MG] 1 each PO Q4H PRN #16 tab 09/15/21 [Rx] Ondansetron [Zofran ODT] 4 mg PO Q6H PRN #7 tab.dis 09/15/21 [Rx] Past Medical History HEENT History: Reports: Impaired Vision Cardiovascular History: Reports: Blood Clots/VTE/DVT Other Cardiovascular History: DVT Respiratory History: Reports: PE Gastrointestinal History: Reports: Pancreatitis Genitourinary History: Reports: Renal Calculus Musculoskeletal History: Reports: Neck Pain, Chronic Neurological History: Reports: Brain Injury Psychiatric History: Reports: Depression Endocrine/Metabolic History: Reports: Obesity/BMI 30+ Hematologic History: Reports: None Immunologic History: Reports: None Oncologic (Cancer) History: Reports: None Dermatologic History: Reports: None - Infectious Disease History Infectious Disease History: Reports: Chicken Pox - Past Surgical History HEENT Surgical History: Reports: None GI Surgical History: Reports: Appendectomy, Hernia, Abdominal, Hernia Repair/Other Musculoskeletal Surgical History: Reports: Other (See Below) Other Musculoskeletal Surgeries/Procedures:: knee reconstruction and scope also shoulder surgery Social & Family History - Tobacco Use Tobacco Use Status *Q: Never Tobacco User - Caffeine Use Caffeine Use: Reports: Soda, Tea - Recreational Drug Use Recreational Drug Use: No ED ROS GENERAL - Review of Systems Review Of Systems: See Below Constitutional: Reports: Chills. Denies: Fever HEENT: Reports: No Symptoms Respiratory: Reports: No Symptoms Cardiovascular: Reports: No Symptoms GI/Abdominal: Reports: Abdominal Pain (L sided), Nausea. Denies: Black Stool, Bloody Stool, Constipation, Diarrhea, Difficulty Swallowing, Distension, Hematemesis, Hematochezia, Melena, Vomiting : Reports: Hematuria Musculoskeletal: Reports: No Symptoms Skin: Reports: No Symptoms ED EXAM, RENAL/ - Physical Exam Exam: See Below Exam Limited By: No Limitations General Appearance: Alert, WD/WN, No Apparent Distress, Obese Eye Exam: Bilateral Eye: Normal Inspection Ears: Normal External Exam, Normal Canal, Hearing Grossly Normal, Normal TMs Nose: Normal Inspection, No Blood Throat/Mouth: Normal Inspection, Normal Lips, Normal Voice, No Airway Compromise Head: Atraumatic, Normocephalic Neck: Normal Inspection Respiratory/Chest: No Respiratory Distress, Lungs Clear, Normal Breath Sounds Cardiovascular: Regular Rate, Rhythm, No Edema GI/Abdominal: Normal Bowel Sounds, Soft, No Distention, Tender (L mid abdomen). No: Non-Tender, Distended Back Exam: CVA Tenderness (L). No: CVA Tenderness (R) Extremities: Normal Inspection, Normal Range of Motion, Non-Tender, No Pedal Edema Course - Vital Signs Last Recorded V/S: Last Vital Signs Temp 36.2 C 09/15/21 16:05 Pulse 77 09/15/21 16:05 Resp 16 09/15/21 16:05 BP 125/81 09/15/21 16:05 Pulse Ox 95 09/15/21 16:05 - Orders/Labs/Meds Labs: Laboratory Tests 09/15/21 09/15/21 09/15/21 Range/Units 16:54 16:54 16:54 WBC 13.7 H (4.5-11.0) K/uL RBC 5.96 H (4.30-5.90) M/uL Hgb 16.9 H (12.0-15.0) g/dL Hct 49.8 (40.0-54.0) % MCV 84 (80-98) fL MCH 28 (27-31) pg MCHC 34 (32-36) % Plt Count 296 (150-400) K/uL C-Reactive Protein 0.36 H (0.0-0.3) mg/dL Urine Color Yellow (YELLOW) Urine Appearance Clear (CLEAR) Urine pH 5.5 (5.0-8.0) Ur Specific [place] 1.010 (1.008-1.030) Urine Protein Negative (NEGATIVE) mg/dL Urine Glucose (UA) Negative (NEGATIVE) mg/dL Urine Ketones Negative (NEGATIVE) mg/dL Urine Occult Blood Moderate H (NEGATIVE) Urine Nitrite Negative (NEGATIVE) Urine Bilirubin Negative (NEGATIVE) Urine Urobilinogen 0.2 (0.2-1.0) EU/dL Ur Leukocyte Esterase Negative (NEGATIVE) Urine RBC 5-10 H (0-5) Urine WBC 0-5 (0-5) Ur Epithelial Cells Moderate Amorphous Sediment Occasional Urine Bacteria Occasional Urine Mucus Few Meds: Medications Discontinued Medications Generic Name Dose Route Start Last Admin Trade Name Freq PRN Reason Stop Dose Admin Ketorolac Tromethamine 30 mg 09/15/21 16:31 09/15/21 17:05 Ketorolac 30 Mg/Ml Sdv IM 09/15/21 16:32 30 mg ONETIME ONE Administration - Re-Assessments/Exams Free Text/Narrative Re-Assessment/Exam: 09/15/21 17:32 After discussion elected to post-pone a CT scan, will treat presumptively. Departure - Departure Time of Disposition: 17:35 Disposition: Home, Self-Care 01 Condition: Fair Clinical Impression: Left renal stone - Discharge Information *PRESCRIPTION DRUG MONITORING PROGRAM REVIEWED*: Yes *COPY OF PRESCRIPTION DRUG MONITORING REPORT IN PATIENT ANI: Yes Instructions: Renal Colic, [id number] Referrals: PCP,None [Primary Care Provider] - Forms: ED Department Discharge Additional Instructions: Strain your urine and save any sediment. Drink ample amts of water. Take ibuprofen 600 mg every 6 hrs with food starting after 11 pm tonight. Take Percocet OR acetaminophen for added relief. Recheck in the clinic before the end of next week if you haven't yet passed your stone. Return to the ER for fever or uncontrolled pain. Sepsis Event Note (ED) - Evaluation Sepsis Screening Result: No Definite Risk - Focused Exam Vital Signs: Vital Signs Temp Pulse Resp BP Pulse Ox 09/15/21 16:05 36.2 C 77 16 125/81 95
== END 2021-09-15 17:49 | disposition home or self-care (01) ==
LOC: JP.ED 15:35
DX: N20.0 Calculus of kidney (principal); E66.9 Obesity, unspecified; Z68.38 Body mass index [BMI] 38.0-38.9, adult
CPT/HCPCS: 36415; 81001; 85027; 86140; 96372; 99284; J1885

== ENCOUNTER 2022-07-07 13:12 | Emergency (ER) | payer MEDICAID ==
[2022-07-07] MEDS ORDERED: Sodium Chloride 0.9% 10 ML Syringe FLUSH PRN (16:27)
[2022-07-07] MEDS ORDERED: HYDROmorphone 1 MG/ML Syringe IVPUSH ONE ×2 (16:28→18:07)
[2022-07-07] MEDS ORDERED: Ondansetron 4 MG/2 ML SDV IVPUSH ONE (16:28)
[2022-07-07 17:14] LABS: ESTIMATED GFR 98 mL/min (>60)
[2022-07-07] MEDS ORDERED: Iopamidol 612 MG/ML 150 ML Bottle IV PRN (18:05)
[2022-07-07] MEDS ORDERED: Sodium Chloride 0.9% 100 ML IV SCH (18:15)
== END 2022-07-07 20:15 | disposition home or self-care (01) ==
LOC: JP.ED 13:12
DX: K85.90 Acute pancreatitis without necrosis or infection, unspecified (principal); E66.9 Obesity, unspecified; Z86.16 Personal history of COVID-19; Z68.34 Body mass index [BMI] 34.0-34.9, adult
CPT/HCPCS: 36415; 74178; 80053; 81001; 82150; 83690; 85025; 85651; 86140; 96374; 96375; 96376; 99284; J1170; J2405; J3490; Q9967

== ENCOUNTER 2022-07-14 22:15 | Emergency (ER) | payer MEDICAID ==
[2022-07-15] MEDS ORDERED: Sodium Chloride 0.9% 10 ML Syringe FLUSH PRN (00:12)
[2022-07-15] MEDS ORDERED: Ketorolac 30 MG/ML SDV IVPUSH ONE (00:13)
[2022-07-15] MEDS ORDERED: Ondansetron 4 MG/2 ML SDV IVPUSH ONE (00:13)
[2022-07-15] MEDS ORDERED: Lactated Ringers 1,000 ML IV SCH (00:15)
[2022-07-15 00:45] LABS: ESTIMATED GFR 88 mL/min (>60); TROPONIN I HIGH SENSITIVITY 6.8 pg/mL (<=60.3)
[2022-07-15] MEDS ORDERED: Prochlorperazine 10 MG/2 ML SDV IVPUSH ONE (01:38)
[2022-07-15] MEDS ORDERED: diphenhydrAMINE 50 MG/ML SDV IVPUSH ONE (02:06)
[2022-07-15] MEDS ORDERED: Lactated Ringers 1,000 ML IV ONE (03:32)
== END 2022-07-15 05:12 | disposition home or self-care (01) ==
LOC: JP.ED 22:15
DX: R11.2 Nausea with vomiting, unspecified (principal); E66.9 Obesity, unspecified; Z68.34 Body mass index [BMI] 34.0-34.9, adult; Z88.8 Allergy status to other drugs, medicaments and biological substances; Z79.899 Other long term (current) drug therapy; Z86.16 Personal history of COVID-19
CPT/HCPCS: 36415; 74018; 80053; 81001; 83605; 83690; 84484; 85025; 85610; 86140; 96361; 96374; 96375; 99284; J0780; J1200; J1885; J2405; J3490; J7120